=== PATIENT | male | born 1970 | race Hispanic/Latino ===

== ENCOUNTER 2018-08-03 13:00 | Outpatient (RCR) | payer OTHER, SELFPAY ==
--- NOTE | 2018-06-20 15:43 | HP.OTEVAL ---
Patient's Visit Information SHY JACKMAN is a 48 year old M, referred to Occupational Therapy by CHRISTIAN RAMOS, with a diagnosis of Laceration of extn musc/fasc/tendon of mid/rng finger of L hand. Date of Evaluation: 06/19/18 Occupational Therapist: Calista Hernandez, JASPERR/Bao, CHT - Subjective Subjective: Pt. arrives and states that he acquired a laceration of the 3rd and 4th digits while performing a job task at work. Pt. reports that he was burned through glove his glove when moving metal pieces around at work. This injury originally occured in December of 2017. Following the injury pt. had sx, which occured on 05/16/2018. Patients arrives at therapy 4 weeks post operation. - Pain L LF and RF Unrated Pain Intensity Range: Unrated - Objective Objective/Observation: OT noted that pt. has scar tisssue over the dorsal aspect of the 3rd and 4th digits. pt. reported that scar tissue is slightly sensitive to touch. - ROM ROM Comments: ROM of the L hand. MP 2nd 0/80, 3rd 0/45, 4th 0/43, 5th 0/47. PIP 2nd 0/80, 3rd 0/20, 4th 0/20, 5th 0/20. DIP 2nd 0/70, 3rd 0/5, 4th 0/10, 5th 0/10 - Strength Oracle Drm Consultant: 9 # on L and 70 # on R Lateral Pinch: 8 # on L and 19# on R Tripod Pinch: 6 # on L and 22 # on R - In-Hand Manipulation Comments: patient has decreased ROM in fingers causing decreased ability to manipulate small objects. - DASH-Disabilities of Arm, Shoulder& Hand DASH Sum: 73 - Goals Goal:100% adherence to protocol: Yes Comment: Following the Extensor tendon repair zones II, III, IV protocol Goal:Daily scar massage when approriate: Yes Comment: scar on dorsal aspect of 3rd and 4th digits of L hand Goal:ROM equal to unaffected hand: Yes Comment: pt. will demo full composite fist Goal:Oracle Drm Consultant/Pinch strength at least 75% of unaffected hand: Yes Comment: pt. demo decreased sports media/pinch strength Goal:No pain with affected hand use: Yes Comment: pt. reports increased pain during movements/stretches Goal:PIP Circumferences equal to unaffected hand: Yes Comment: pt. demo some swelling in PIP area of 4th digit Goal:Full use of affected hand in daily activities including: Yes Comment: pt. demo limited composite fist Goal:Decrease scar hypersensitivity: Yes Comment: pt. reports scar is sensitive to touch at times Other Goal: Patient will report understanding of HEP for increased ROM in order to make a full composite fist. - Rehabilitation General Assessment: Patient presents with laceration of extn musc/fasc/tendon of mid/rng finger of L hand following a work related injury. Pt. had sx 4 weeks ago to repair the extensor tendons. Pt. is currently presenting with decreased ROM, decreased strength, increased pain and swelling, decreased ability to complete BADL's and IADL's. Patient would benefit from OT services 2-3x/wk for 6 weeks. Rehabilitation Potential: Good - Anticipated Interventions Anticipated Interventions: A/AAROM/PROM, Strengthening, Triggerpoint Release, Desensitization, Modalities, ADL Training, Home Program - Visit Plan Frequency: 2-3x /Week Duration: 6 Weeks TEXT: Thank you for the opportunity to evaluate your patient. For Medicare and Medicare HMO plans, please review the plan of care and approve it. It will need to be FAXED BACK to us at [phone] for Medicare purposes. Please let me know if there are questions or concerns regarding this plan of care. Physician Signature: Date:
--- NOTE | 2018-07-25 14:48 | HP.OTREVAL ---
CHRISTIAN RAMOS, It has been my pleasure to treat SHY Lopez JACKMAN over the last 10 visits for Laceration of extn musc/fasc/tendon of mid/rng finger of L hand. Please see the progress note below for an update on the occupational therapy plan of care! Subjective: pt. arrives and states that his ROM is progressing, but at a slower rate. Pt is not feeling well today, fighting a cold. Objective/Function: ROM beginning. 3rd. MP 0/80. PIP 0/59. DIP 0/42. 4th. MP 0/81. PIP 0/52. DIP 0/28. Following tx ROM. 3rd. MP 0/85. PIP 0/65. DIP 0/45. 4th. MP 0/89. PIP 0/56. DIP 0/32. 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 lateral 10# in L 15# in R. tripod 14# in L and 17# in R. pt. ROM and strength is progressing. pt. demo difficulty making full straight and composite fist. pt. reports that he has no difficulty with current work tasks. pt. would benefit from further OT services to increase ROM and strength further. Plan Frequency: 2-3x /Week Duration: 6 Weeks Plan: hook fist. cont blocking. theraputty exercises. scar management. next week is week cont. strengthening Goals - Goals Other Goal: Patient will report understanding of HEP for increased ROM in order to make a full composite fist. Anticipated Interventions Anticipated Interventions: A/AAROM/PROM, Strengthening, Triggerpoint Release, Desensitization, Modalities, ADL Training, Home Program Please do not hesitate to contact me at [phone] by phone or if you have questions or concerns regarding this new plan of care! Sincerely, Calista Hernandez, OTR/L, CHT
--- NOTE | 2018-08-29 15:10 | HP.OTDCSUM ---
HP - OT D/C Summary It has been my pleasure to treat SHY JACKMAN under orders from CHRISTIAN RAMOS, for the diagnosis of Laceration of extn musc/fasc/tendon of mid/rng finger of L hand for a total of 12 visit(s). Please see the following information for a summary of their discharge status. - Objective Objective/Function: ROM. 3rd. MP 0/85. PIP 0/70. DIP 0/43. 4th. MP 0/91. PIP 0/58. DIP 0/35 - Goals Patient Goals: Regain Strength, Decrease Pain, Decrease Swelling/Stiffness, Use Hand/Wrist/Arm Normally Again, Increase ROM, Be More Independent in ADLS, Decrease Sensitivity, Resume Former Household Responsibilities (Cooking,Cleaning,Yard, etc.), Resume Hobbies Goal:100% adherence to protocol: Yes Goal:Daily scar massage when approriate: Yes Goal:ROM equal to unaffected hand: Yes Goal:Software Configuration Manager/Pinch strength at least 75% of unaffected hand: Yes Goal:No pain with affected hand use: Yes Goal:PIP Circumferences equal to unaffected hand: Yes Goal:Full use of affected hand in daily activities including: Yes Goal:Decrease scar hypersensitivity: Yes Other Goal: Patient will report understanding of HEP for increased ROM in order to make a full composite fist. - Plan Plan: hook fist. cont blocking. theraputty exercises. scar management. strengthening - D/C Information Discharge Comments: PT has not returned to therapy at this time- C9 date is - pt made great gains in his ROM and strength- pt was ed.on HEP and will do well with continuation of his HEP. pt to return to with any new concerns. Pt d/c at this time from OT services. If there are questions or concerns regarding this patient's occupational therapy, please fell free to call me at [phone]. Thank you for the referral of this patient. Sincerely, Calista Hernandez, OTR/L, CHT
== END 2018-08-03 19:00 | disposition home or self-care (01) ==
LOC: OT 13:00
DX: S66.323D Laceration of extensor muscle, fascia and tendon of left middle finger at wrist and hand level, subsequent encounter (principal); S66.325D Laceration of extensor muscle, fascia and tendon of left ring finger at wrist and hand level, subsequent encounter
CPT/HCPCS: 97110; 97140; 97166; 97530